=== PATIENT | female | born 1965 | race Caucasian/White ===

== ENCOUNTER 2021-07-01 23:49 | Emergency (ER) | payer OTHER ==
[~2021-07-01] VITALS: Ht 157.5 cm; Wt 93.6 kg
--- NOTE | 2021-07-02 00:02 | PHYS DOC ---
Past Medical History Smoking Status: Never Smoker Alcohol Use: None Drug Use: None General Adult HPI: HPI: Patient is a 55 year old female who presents with sudden onset of right flank pain, rating to her right lower quadrant. She reports that she noticed he maturia just prior to this. She does report having some urinary urgency. Symptoms all began today. She has vomited several times. She does report continued nausea. No previous similar symptoms. She denies any abdominal flank or back trauma. She denies incontinence. She denies fevers or chills. She denies constipation or diarrhea symptoms. No previous abdominal surgeries. Review of Systems: Review of Systems: Constitutional: Denies fever or chills. [] HENT: Denies nasal congestion or sore throat. [] Respiratory: Denies cough or shortness of breath. [] Cardiovascular: Denies chest pain or edema. [] GI: Right flank pain, right lower quadrant abdominal pain, nausea, vomiting. Denies bowel habit changes. : Urinary urgency and gross hematuria. Denies dysuria. Denies pelvic pain. Musculoskeletal: Right flank pain. No midline back pain. Integument: Denies rash. [] Neurologic: Denies headache, focal weakness or sensory changes. [] Psychiatric: Denies depression or anxiety. [] Heart Score: C/O Chest Pain: No Risk Factors: Risk Factors: DM, Current or recent (<one month) smoker, HTN, HLP, family history of CAD, obesity. Risk Scores: Score 0 - 3: 2.5% MACE over next 6 weeks - Discharge Home Score 4 - 6: 20.3% MACE over next 6 weeks - Admit for Clinical Observation Score 7 - 10: 72.7% MACE over next 6 weeks - Early Invasive Strategies Physical Exam: PE: Constitutional: Well developed, well nourished, no acute distress, non-toxic appearance. [] HENT: Normocephalic, atraumatic Eyes: Sclera are clear and anicteric, conjunctive are normal Neck: Normal range of motion, no tenderness, supple, no stridor. [] Cardiovascular:Heart rate regular rhythm, + 2 radial and +2 dorsalis pedis pulses bilaterally Lungs & Thorax: Bilateral breath sounds clear to auscultation [] Abdomen: Abdomen is obese, soft, nondistended, nontender to palpation. Mild right CVA tenderness. No palpable pulsatile mass. No flank abdominal ecchymoses. Skin: Warm, dry, no erythema, no rash. [] Back: No tenderness, no CVA tenderness. [] Extremities: No tenderness, no cyanosis, no clubbing, ROM intact, no edema. No calf tenderness Neurologic: Alert and oriented X 3, normal motor function, normal sensory function, no focal deficits noted. [] Psychologic: Affect normal, judgement normal, mood normal. She is pleasant and cooperative. EKG: EKG: [] Radiology/Procedures: Radiology/Procedures: IMAGING REPORT Signed PATIENT: ANEUDY SORTO ACCOUNT: [id number] : 1965 LOCATION: ER AGE: 55 SEX: F EXAM STATUS: REG ER ORD. PHYSICIAN: BETTY DUARTE DO REASON: R flank pain, hematuria PROCEDURE: CT ABDOMEN PELVIS WO CONTRAST CT ABDOMEN+PELVIS WO History: Right flank pain, hematuria Comparison: None. Technique: Noncontrast CT of the abdomen and pelvis Findings: There is a 5 mm stone at the right ureterovesicular junction with mild right hydronephrosis and hydroureter. Multiple right nephroliths measuring up to 9 mm diameter. No left hydronephrosis, hydroureter or nephrolithiasis. The bladder is decompressed. Uterus and adnexa are unremarkable. Lung bases are clear. No pleural or pericardial effusion. The liver, spleen, gallbladder, pancreas, and adrenal glands are unremarkable. The abdominal pelvic vasculature is within normal limits. Soft tissues are unremarkable. Severe degenerative changes of the lumbar spine greatest at L4-L5 and L5-S1 with multiple level canal and foraminal stenosis. Impression: 1. Right ureterovesicular junction stone measuring 5 mm with mild right hydronephrosis and hydroureter. 2. Right nephrolithiasis. 3. Severe degenerative changes of the lumbar spine with multilevel canal and foraminal stenosis. If there is concern for radiculopathy, recommend lumbar spine MRI for further evaluation. ------ Exposure: One or more of the following individualized dose reduction techniques were utilized for this examination: 1. Automated exposure control 2. Adjustment of the mA and/or kV according to patient size 3. Use of iterative reconstruction technique. Electronically signed by: Vazquez Kong MD (07/02/2021 12:46 AM) [facility] DICTATED and SIGNED BY: VAZQUEZ KONG MD DATE: 07/02/21 0043 Course & Med Decision Making: Course & Med Decision Making Pertinent Labs and Imaging studies reviewed. (See chart for details) The patient is given IV fluids, IV morphine, IV Toradol, IV Zofran. She reports feeling much better, no further nausea or vomiting symptoms. She reports no further pain. I have discussed the findings, differential diagnosis and plan of care with the patient. I have offered admission for symptom control, urology consultation. She declines at this time. She prefers to go home. I did request that she be given a urine strainer. I did explain that physically speaking, ureteral stones greater than 4 mm have less chance of passing spontaneously, but she wishes to try to go home. She does have some pyuria, she will be given antibiotics. She has not complained of any urinary symptoms prior to this. Urine culture is pending. She is given strict return prec autions and she verbalized understanding. Bam Disclaimer: Bam Disclaimer: This electronic medical record was generated, in whole or in part, using a voice recognition dictation system. Departure Departure Impression: Primary Impression: Right ureteral stone Additional Impression: Ureteral colic Disposition: HOME / SELF CARE / HOMELESS Condition: STABLE Referrals: STEWART SANTOS DO Patient Instructions: Kidney Stones Additional Instructions: Use the medication as needed/as directed for pain and nausea. Take the antibiotics and Flomax as directed. Please contact urology on Saturday. Please contact your primary care doctor for follow-up as well. Return to the ER immediately for any uncontrolled pain, temperature 100.4 or higher, uncontrolled vomiting, dehydration or other concerns. Scripts Cephalexin (KEFLEX) 500 Mg Capsule 1 CAP PO BID for 7 Days, #14 CAP Prov: BETTY DUARTE DO 07/02/21 Tamsulosin Hcl (FLOMAX) 0.4 Mg Cap.er.24h 1 CAP PO DAILY, #20 CAP 11 Refills Prov: BETTY DUARTE DO 07/02/21 Ondansetron Hcl (ONDANSETRON HCL) 4 Mg Tablet 1 TAB PO PRN Q6HRS for vomiting, #20 TAB 1 Refill Prov: BETTY DUARTE DO 07/02/21 Hydrocodone Bit/Acetaminophen (HYDROCODONE-APAP 5-325 ) 1 Tab Tablet 1 TAB PO PRN Q6HRS PRN for PAIN, #20 TAB 0 Refills Prov: BETTY DUARTE DO 07/02/21 BETTY DUARTE DO Jul 02, 2021 00:02
--- NOTE | 2021-07-02 00:48 | RAD ---
CT ABDOMEN+PELVIS WO History: Right flank pain, hematuria Comparison: None. Technique: Noncontrast CT of the abdomen and pelvis Findings: There is a 5 mm stone at the right ureterovesicular junction with mild right hydronephrosis and hydro ureter. Multiple right nephroliths measuring up to 9 mm diameter. No left hydronephrosis, hydroureter or nephrolithiasis. The bladder is decompressed. Uterus and adnexa are unremarkable. Lung bases are clear. No pleural or pericardial effusion. The liver, spleen, gallbladder, pancreas, a nd adrenal glands are unremarkable. The abdominal pelvic vasculature is within normal limits. Soft ti ssues are unremarkable. Severe degenerative changes of the lumbar spine greatest at L4-L5 and L5-S1 w ith multiple level canal and foraminal stenosis. Impression: 1. Right ureterovesicular junction stone measuring 5 mm with mild right hydronephrosis and hydrouret er. 2. Right nephrolithiasis. 3. Severe degenerative changes of the lumbar spine with multilevel canal and foraminal stenosis. If there is concern for radiculopathy, recommend lumbar spine MRI for further evaluation. ------ Exposure: One or more of the following individualized dose reduction techniques were utilized for thi s examination: 1. Automated exposure control 2. Adjustment of the mA and/or kV according to patient size 3. Use of iterative reconstruction technique. Electronically signed by: Vazquez Hwang MD (07/02/2021 12:46 AM) [facility]
[2021-07-02 01:44] LABS: BILIRUBIN,URINE NEGATIVE (NEG); CLARITY,URINE HAZY; COLOR,URINE YELLOW; PROTEIN,URINE TRACE mg/dL (NEG-TRACE)
[2021-07-02 01:45] LABS: NITRITE,URINE NEGATIVE (NEG); UROBILINOGEN,URINE 0.2 mg/dL (0.2 mg/dL)
[2021-07-02 01:46] LABS: BACTERIA,URINE FEW /HPF (0-FEW); RBC,URINE TNTC /HPF (0-2)
[2021-07-02] MEDS: IV NORMAL SALINE 1000ML BAG 1,000 ML IV ONE (01:53)
[2021-07-02] MEDS: MORPHINE SULFATE 4 MG/ML INJ. IVP ONE (01:54)
[2021-07-02] MEDS: KETOROLAC 15 MG/ML VIAL. IVP ONE (01:54)
[2021-07-02] MEDS: ONDANSETRON PF 4 MG/2 ML VIAL. IVP ONE (01:54)
[2021-07-02 01:57] LABS: BASO # 0.1 x10^3/uL (0.0-0.2); BASO % 1 % (0-3); EOS # 0.1 x10^3/uL (0.0-0.7); EOS % 1 % (0-3); HEMATOCRIT 37.4 % (36.0-47.0); HEMOGLOBIN 12.4 g/dL (12.0-15.5); LYMPH # 2.4 x10^3/uL (1.0-4.8); LYMPH % 22 % (24-48); MEAN CORPUSCULAR HEMOGLOBIN 29 pg (25-35); MEAN CORPUSCULAR HGB CONC 33 g/dL (31-37); MEAN CORPUSCULAR VOLUME 88 fL (79-100); MONO # 0.6 x10^3/uL (0.0-1.1); MONO % 6 % (0-9); NEUT # 7.7 x10^3/uL (1.8-7.7); NEUT % 71 % (31-73); PLATELET COUNT 321 x10^3/uL (140-400); RED BLOOD COUNT 4.26 x10^6/uL (3.50-5.40); RED CELL DISTRIBUTION WIDTH 14.7 % (11.5-14.5); WHITE BLOOD COUNT 10.8 x10^3/uL (4.0-11.0)
[2021-07-02 02:35] LABS: CALCIUM 8.9 mg/dL (8.5-10.1); CREATININE 1.1 mg/dL (0.6-1.0); POTASSIUM 3.9 mmol/L (3.5-5.1)
[2021-07-02 02:40] LABS: ALBUMIN 3.4 g/dL (3.4-5.0); ALBUMIN/GLOBULIN RATIO 0.9 (1.0-1.7); TOTAL BILIRUBIN 0.2 mg/dL (0.2-1.0); TOTAL PROTEIN 7.4 g/dL (6.4-8.2)
[2021-07-02] MEDS ORDERED: HYDR-2761 PO (03:02)
[2021-07-02] MEDS ORDERED: CEPH500C PO (03:02)
[2021-07-02] MEDS ORDERED: TAMS0.4C97 PO (03:02)
[2021-07-02] MEDS ORDERED: ONDA-84 PO (03:02)
[2021-07-02 03:25] VITALS: BP 142/75
== END 2021-07-02 03:30 | disposition home or self-care (01) ==
LOC: ER 23:49
DX: N13.1 Hydronephrosis with ureteral stricture, not elsewhere classified (principal)
CPT/HCPCS: 36415; 74176; 80053; 81001; 83690; 85025; 87086; 96361; 96374; 96375; 99285; J1885; J2270; J2405; J7030